=== PATIENT | female | born 1940 ===

== ENCOUNTER 2021-03-26 07:22 | Inpatient (IN) | payer BC, OTHER ==
[~2021-03-26] VITALS: Ht 157.5 cm; Wt 45.4 kg
[2021-03-26 09:00] LABS: Basophils # (auto) 0 10 ^3/uL (0-0.2); Basophils % (auto) 0.3 % (0.0-2.0); Eosinophils # (auto) 0 10 ^3/uL (0-0.8); Eosinophils % (auto) 0.7 % (0.0-7.0); Hematocrit 33.3 % (36.0-46.0); Hemoglobin 10.8 g/dL (12.2-16.2); Lymphocytes # (auto) 0.8 10 ^3/uL (0.4-5.4); Lymphocytes % (auto) 13.5 % (10.0-50.0); Mean Corpuscular Hemoglobin 31.9 pg (28.0-32.0); Mean Corpuscular Hgb Conc. 32.6 g/dL (32.0-36.0); Mean Corpuscular Volume 97.9 fL (80.0-100.0); Monocytes # (auto) 0.5 10 ^3/uL (0-1.3); Monocytes % (auto) 8.5 % (0.0-12.0); Neutrophils # (auto) 4.5 10 ^3/uL (1.6-8.6); White Blood Cell 5.9 10^3/uL (4.4-10.8)
[2021-03-26 09:06] LABS: Alanine Aminotransferase 23 U/L (13-56); Albumin 2.8 g/dL (3.4-5.0); Anion Gap 8 (5-15); Aspartate Aminotransferase 13 U/L (15-37); BUN/Creatinine Ratio 20.3; Blood Urea Nitrogen 13 mg/dL (7-18); Calcium 8.4 mg/dL (8.5-10.1); Carbon Dioxide 27 mmol/L (21-32); Chloride 106 mmol/L (98-107); GFR African American 115 mL/min; GFR Non-African American 95 mL/min; Glucose 84 mg/dL (74-106); Sodium 141 mmol/L (136-145)
[2021-03-26 09:07] LABS: INR 1.14 (0.9-1.15); Partial Thromboplastin Time 25.8 sec (23.6-33.0)
[2021-03-26 09:11] LABS: Alkaline Phosphatase 62 U/L (45-117); Bilirubin, Total 0.6 mg/dL (0.2-1.0); Total Protein 6.2 g/dL (6.4-8.2)
[2021-03-26] MEDS ORDERED: ONDANSETRON HCL 4 MG/2 ML VIAL IV ONE (10:45)
[2021-03-26] MEDS ORDERED: MORPHINE SULFATE 4 MG/ML SYR/VIAL IV ONE (10:45)
[2021-03-26] MEDS ORDERED: MORPHINE SULFATE INJECTION 2 MG/ML SYRG IV PRN ×2 (14:30→20:15)
[2021-03-26] MEDS ORDERED: NITROGLYCERIN 0.4 MG SL TAB SL PRN ×2 (14:30→20:15)
[2021-03-26] MEDS ORDERED: ALEN70TA74 PO (16:23)
[2021-03-26] MEDS ORDERED: AMLO-489 PO (16:23)
[2021-03-26] MEDS ORDERED: LANS30CA58 PO (16:23)
[2021-03-26] MEDS ORDERED: LEFL1TAB3 PO (16:23)
[2021-03-26] MEDS ORDERED: PRE5T PO (16:23)
[2021-03-26] MEDS ORDERED: LEVO50TA7 PO (16:23)
[2021-03-26] MEDS ORDERED: HYDR200T36 PO (16:23)
[2021-03-26 17:00] VITALS: BP 143/69
[2021-03-26] MEDS ORDERED: LORazepam 0.5 MG TAB PO PRN (20:15)
[2021-03-26] MEDS ORDERED: hydrALAZINE HCL 20 MG/ML VL IV PRN (20:15)
[2021-03-26] MEDS ORDERED: NIFEdipine ER 30 MG TAB PO ONE (20:15)
[2021-03-26] MEDS ORDERED: ceFAZolin 1GM/50ML 50 ML IV ONE (20:15)
[2021-03-26] MEDS ORDERED: DOCUSATE SOD 100 MG CAP PO PRN (20:15)
[2021-03-26] MEDS ORDERED: ALUM & MAG HYDROX-SIMETH LIQ(MAALOX) 30 ML PO PRN (20:15)
[2021-03-26] MEDS ORDERED: ONDANSETRON HCL 4 MG/2 ML VIAL IV PRN (20:15)
[2021-03-26] MEDS: SOD CHL 0.45% 1,000 ML IV SCH (21:23)
[2021-03-26] MEDS: ceFAZolin 1GM/50ML 50 ML IV SCH (21:25)
[2021-03-26] MEDS: FAMOTIDINE (10MG/ML) 2ML VL IV SCH (21:29)
[2021-03-26 22:00] VITALS: BP 137/69
[2021-03-26 22:24] LABS: Basophils # (auto) 0 10 ^3/uL (0-0.2); Basophils % (auto) 0.3 % (0.0-2.0); Eosinophils # (auto) 0.1 10 ^3/uL (0-0.8); Eosinophils % (auto) 1.6 % (0.0-7.0); Hematocrit 33.8 % (36.0-46.0); Hemoglobin 10.9 g/dL (12.2-16.2); Lymphocytes # (auto) 0.7 10 ^3/uL (0.4-5.4); Lymphocytes % (auto) 11.4 % (10.0-50.0); Mean Corpuscular Hgb Conc. 32.3 g/dL (32.0-36.0); Mean Corpuscular Volume 99.1 fL (80.0-100.0); Monocytes # (auto) 0.6 10 ^3/uL (0-1.3); Monocytes % (auto) 9.6 % (0.0-12.0); Neutrophils % (auto) 77.1 % (37.0-80.0); Red Blood Cells 3.41 10^6/uL (4.0-5.20); Red Cell Distribution Width 14.8 % (11.8-14.3); White Blood Cell 6.5 10^3/uL (4.4-10.8)
[2021-03-26 22:50] LABS: Cholesterol 148 mg/dL (< 200); HDL Cholesterol 61 mg/dL (40-59); LDL Cholesterol 75 mg/dL (< 100); Triglycerides 70 mg/dL (< 150)
[2021-03-27 05:00] VITALS: BP 154/85
[2021-03-27 06:20] LABS: Basophils # (auto) 0 10 ^3/uL (0-0.2); Basophils % (auto) 0.3 % (0.0-2.0); Eosinophils # (auto) 0 10 ^3/uL (0-0.8); Eosinophils % (auto) 0.4 % (0.0-7.0); Hematocrit 39.7 % (36.0-46.0); Hemoglobin 12.8 g/dL (12.2-16.2); Lymphocytes # (auto) 0.4 10 ^3/uL (0.4-5.4); Lymphocytes % (auto) 7.7 % (10.0-50.0); Mean Corpuscular Hgb Conc. 32.2 g/dL (32.0-36.0); Mean Corpuscular Volume 99.3 fL (80.0-100.0); Monocytes # (auto) 0.4 10 ^3/uL (0-1.3); Monocytes % (auto) 6.7 % (0.0-12.0); Neutrophils # (auto) 4.9 10 ^3/uL (1.6-8.6); Neutrophils % (auto) 84.9 % (37.0-80.0); Red Cell Distribution Width 15.6 % (11.8-14.3); White Blood Cell 5.8 10^3/uL (4.4-10.8)
[2021-03-27 06:30] LABS: INR 1.12 (0.9-1.15); Partial Thromboplastin Time 29.3 sec (23.6-33.0)
[2021-03-27 06:36] LABS: Chloride 102 mmol/L (98-107); Potassium 4.1 mmol/L (3.5-5.1); Sodium 136 mmol/L (136-145)
[2021-03-27 06:44] LABS: Alanine Aminotransferase 26 U/L (13-56); Albumin 3.1 g/dL (3.4-5.0); Alkaline Phosphatase 71 U/L (45-117); Anion Gap 9 (5-15); Aspartate Aminotransferase 16 U/L (15-37); BUN/Creatinine Ratio 35.6; Bilirubin, Total 0.7 mg/dL (0.2-1.0); Blood Urea Nitrogen 16 mg/dL (7-18); Calcium 8.6 mg/dL (8.5-10.1); Carbon Dioxide 25 mmol/L (21-32); GFR African American 172 mL/min; GFR Non-African American 142 mL/min; Glucose 55 mg/dL (74-106); Total Protein 6.7 g/dL (6.4-8.2); Uric Acid 3.4 mg/dL (2.6-6.0)
[2021-03-27] MEDS: ceFAZolin 1GM/50ML 50 ML IV SCH ×3 (07:01→21:03)
[2021-03-27] MEDS: LEVOTHYROXINE SODIUM 50 MCG TAB PO SCH (07:04)
[2021-03-27 09:06] VITALS: BP 135/67
[2021-03-27] MEDS: FAMOTIDINE (10MG/ML) 2ML VL IV SCH (09:50)
[2021-03-27] MEDS: NIFEdipine ER 30 MG TAB PO SCH (09:50)
[2021-03-27] MEDS: MORPHINE SULFATE INJECTION 2 MG/ML SYRG IV PRN (09:53)
[2021-03-27] MEDS ORDERED: ENOXAPARIN SOD 30 MG/0.3 ML SYRINGE SC SCH (10:00)
[2021-03-27] MEDS ORDERED: predniSONE 5 MG TAB PO ONE (11:00)
[2021-03-27] MEDS: SOD CHL 0.45% 1,000 ML IV SCH (12:55)
[2021-03-27 13:04] VITALS: BP 168/69
[2021-03-27] MEDS: HYDROcodone-ACET 5/325MG TAB PO PRN (16:34)
[2021-03-27 17:00] VITALS: BP 134/54
[2021-03-27 20:43] LABS: Amphetamine Screen, Urine NEGATIVE (NEGATIVE); Barbiturate Scree,Urine NEGATIVE (NEGATIVE); Benzodiazephine Screen, Urine NEGATIVE (NEGATIVE); Cannabinoid Screen, Urine NEGATIVE (NEGATIVE); Opiate Scree,Urine NEGATIVE (NEGATIVE); Phencyclidine Screen, Urine NEGATIVE (NEGATIVE)
[2021-03-27 20:45] LABS: Alcohol, Urine < 3.0 mg/dL (0-10); Cocaine Screen, Urine NEGATIVE (NEGATIVE)
[2021-03-27 21:26] LABS: Urine Bacteria FEW /hpf (None Seen); Urine Mucus FEW (None Seen); Urine WBC 5 /hpf (0 - 5)
[2021-03-27 21:34] LABS: Urine Blood Normal /uL (Negative); Urine Specific Gravity 1.012 (1.001-1.035)
[2021-03-27 22:00] VITALS: BP 114/56
[2021-03-28] MEDS: MORPHINE SULFATE INJECTION 2 MG/ML SYRG IV PRN (00:12)
[2021-03-28] MEDS: ceFAZolin 1GM/50ML 50 ML IV SCH ×3 (04:39→21:54)
[2021-03-28 05:00] VITALS: BP 146/68
[2021-03-28] MEDS: SOD CHL 0.45% 1,000 ML IV SCH (05:35)
[2021-03-28] MEDS: LEVOTHYROXINE SODIUM 50 MCG TAB PO SCH (06:03)
[2021-03-28] MEDS ORDERED: EPINEPHrine HCL 1 MG/1 ML AMP ONE (06:27)
[2021-03-28] MEDS ORDERED: TRANEXAMIC ACID 20 ML ONE (06:27)
[2021-03-28] MEDS ORDERED: TETRACAINE 1% INJ 2 ML VIAL IJ ONE (06:27)
[2021-03-28] MEDS: VANCOMYCIN HCL 1000 MG VL ONE ×2 (06:31→08:50)
[2021-03-28] MEDS ORDERED: ceFAZolin 1GM/50ML 100 ML IV ONE (06:50)
[2021-03-28] MEDS ORDERED: BUPIVACAINE 0.5% P/F INJ 10 ML VIAL ONE (07:06)
[2021-03-28] MEDS ORDERED: fentaNYL CITRATE 100 MCG/2 ML VL ONE (07:11)
[2021-03-28] MEDS ORDERED: MIDAZOLAM HCL 2MG/2ML 2ml VIAL (1mg/ml) ONE ×2 (07:12→08:05)
[2021-03-28] MEDS ORDERED: PROPOFOL 10 MG/ML 20 ML IV ONE (07:43)
[2021-03-28] MEDS ORDERED: DexAMETHasone SOD PHOS 10MG/1ML VIAL INJ ONE (07:43)
[2021-03-28] MEDS ORDERED: BUPIVACAINE 0.25% INJ 50ML VIAL ONE (07:57)
[2021-03-28] MEDS ORDERED: ePHEDrine SULFATE 50 MG/ML AMP IV PRN (08:00)
[2021-03-28] MEDS ORDERED: HYDROmorphone HCL 2 MG/ML VL IV PRN (08:00)
[2021-03-28] MEDS ORDERED: MORPHINE SULFATE 4 MG/ML SYR/VIAL IV PRN (08:00)
[2021-03-28] MEDS ORDERED: MIDAZOLAM HCL 2MG/2ML 2ml VIAL (1mg/ml) IV PRN (08:00)
[2021-03-28] MEDS ORDERED: ONDANSETRON HCL 4 MG/2 ML VIAL IV PRN (08:00)
[2021-03-28] MEDS ORDERED: LABETALOL HCL 5 MG/ML 4ML SYRINGE IV PRN (08:00)
[2021-03-28] MEDS ORDERED: LACTATED RINGER'S 1,000 ML IV SCH (09:15)
[2021-03-28 10:27] VITALS: BP 145/70
[2021-03-28] MEDS: FAMOTIDINE (10MG/ML) 2ML VL IV SCH (11:27)
[2021-03-28] MEDS: predniSONE 5 MG TAB PO SCH (11:28)
[2021-03-28] MEDS: NIFEdipine ER 30 MG TAB PO SCH (11:29)
[2021-03-28 13:00] VITALS: BP 146/71
[2021-03-28] MEDS: HYDROCORTISONE SOD SUCC 100 MG/2ML INJ VIAL IV SCH ×2 (14:00→21:54)
[2021-03-28 17:00] VITALS: BP 129/72
[2021-03-28 22:00] VITALS: BP 130/64
[2021-03-29 05:00] VITALS: BP 122/61
[2021-03-29 06:07] LABS: Basophils # (auto) 0 10 ^3/uL (0-0.2); Basophils % (auto) 0.1 % (0.0-2.0); Eosinophils # (auto) 0 10 ^3/uL (0-0.8); Hematocrit 32.3 % (36.0-46.0); Hemoglobin 10.7 g/dL (12.2-16.2); Lymphocytes # (auto) 0.3 10 ^3/uL (0.4-5.4); Lymphocytes % (auto) 2.8 % (10.0-50.0); Mean Corpuscular Hemoglobin 32.5 pg (28.0-32.0); Mean Corpuscular Hgb Conc. 33.1 g/dL (32.0-36.0); Mean Corpuscular Volume 98.3 fL (80.0-100.0); Monocytes # (auto) 0.5 10 ^3/uL (0-1.3); Monocytes % (auto) 5.3 % (0.0-12.0); Neutrophils # (auto) 9.1 10 ^3/uL (1.6-8.6); Neutrophils % (auto) 91.8 % (37.0-80.0); Red Blood Cells 3.28 10^6/uL (4.0-5.20); Red Cell Distribution Width 14.9 % (11.8-14.3); White Blood Cell 9.9 10^3/uL (4.4-10.8)
[2021-03-29] MEDS: LEVOTHYROXINE SODIUM 50 MCG TAB PO SCH (06:13)
[2021-03-29 06:28] LABS: Potassium 3.8 mmol/L (3.5-5.1)
[2021-03-29 06:30] LABS: BUN/Creatinine Ratio 26.9
[2021-03-29 09:00] VITALS: BP 138/58
[2021-03-29] MEDS: predniSONE 5 MG TAB PO SCH (09:32)
[2021-03-29] MEDS: FAMOTIDINE (10MG/ML) 2ML VL IV SCH (09:32)
[2021-03-29] MEDS: NIFEdipine ER 30 MG TAB PO SCH (09:33)
[2021-03-29 13:00] VITALS: BP 153/70
[2021-03-29] MEDS: HYDROcodone-ACET 5/325MG TAB PO PRN (16:11)
[2021-03-29 17:00] VITALS: BP 127/67
[2021-03-29 22:00] VITALS: BP 105/38
[2021-03-30 05:45] LABS: Basophils # (auto) 0 10 ^3/uL (0-0.2); Basophils % (auto) 0.2 % (0.0-2.0); Eosinophils # (auto) 0.1 10 ^3/uL (0-0.8); Eosinophils % (auto) 1.2 % (0.0-7.0); Hematocrit 32.5 % (36.0-46.0); Hemoglobin 10.8 g/dL (12.2-16.2); Lymphocytes # (auto) 0.8 10 ^3/uL (0.4-5.4); Lymphocytes % (auto) 11.4 % (10.0-50.0); Mean Corpuscular Hemoglobin 32.6 pg (28.0-32.0); Mean Corpuscular Hgb Conc. 33.3 g/dL (32.0-36.0); Mean Corpuscular Volume 97.7 fL (80.0-100.0); Neutrophils % (auto) 73.2 % (37.0-80.0); Nucleated Red Blood Cells % 0.1 %; Red Blood Cells 3.33 10^6/uL (4.0-5.20); Red Cell Distribution Width 14.8 % (11.8-14.3); White Blood Cell 6.8 10^3/uL (4.4-10.8)
[2021-03-30 06:00] VITALS: BP 142/63
[2021-03-30 06:00] LABS: BUN/Creatinine Ratio 29.6; Calcium 8.4 mg/dL (8.5-10.1); Magnesium 2.5 mg/dL (1.6-2.6); Potassium 3.8 mmol/L (3.5-5.1)
[2021-03-30] MEDS: LEVOTHYROXINE SODIUM 50 MCG TAB PO SCH (06:42)
[2021-03-30 09:00] VITALS: BP 138/93
[2021-03-30] MEDS: FAMOTIDINE (10MG/ML) 2ML VL IV SCH (09:18)
[2021-03-30] MEDS: NIFEdipine ER 30 MG TAB PO SCH (09:18)
[2021-03-30] MEDS: predniSONE 5 MG TAB PO SCH (09:21)
[2021-03-30] MEDS: HYDROcodone-ACET 5/325MG TAB PO PRN (12:36)
[2021-03-30 13:00] VITALS: BP 136/78
[2021-03-30 22:00] VITALS: BP 105/65
[2021-03-31 04:47] VITALS: BP 153/73
[2021-03-31] MEDS: LEVOTHYROXINE SODIUM 50 MCG TAB PO SCH (06:02)
[2021-03-31 09:00] VITALS: BP 142/75
[2021-03-31] MEDS: predniSONE 5 MG TAB PO SCH (10:34)
[2021-03-31] MEDS: NIFEdipine ER 30 MG TAB PO SCH (10:34)
[2021-03-31] MEDS: FAMOTIDINE (10MG/ML) 2ML VL IV SCH (10:34)
[2021-03-31] MEDS: HYDROcodone-ACET 5/325MG TAB PO PRN (10:35)
[2021-03-31 10:41] VITALS: BP 142/75
[2021-04-19] MEDS ORDERED: ENOXAPARIN SOD 30 MG/0.3 ML SYRINGE SC SCH (10:00)
== END 2021-03-31 13:15 | disposition home health service (06) | DRG 522 ==
LOC: EDBD 07:22 → ER 07:22 → OVERFLOW 14:23 → WEST WING 15:30 → TELE-WESTW 03-28 09:32
PROVIDERS: ADMIT Hospitalist; ATTEND Internal Medicine
PROC: 0SRR019 Replacement of Right Hip Joint, Femoral Surface with Metal Synthetic Substitute, Cemented, Open Approach (ICD-10-PCS; principal; 2021-03-28 07:14)
DX: S72.001A Fracture of unspecified part of neck of right femur, initial encounter for closed fracture (principal); E44.1 Mild protein-calorie malnutrition; Z68.1 Body mass index [BMI] 19.9 or less, adult; J84.9 Interstitial pulmonary disease, unspecified; D62 Acute posthemorrhagic anemia; I10 Essential (primary) hypertension; J44.9 Chronic obstructive pulmonary disease, unspecified; E03.9 Hypothyroidism, unspecified; K29.70 Gastritis, unspecified, without bleeding; Z20.822 Contact with and (suspected) exposure to COVID-19; K21.9 Gastro-esophageal reflux disease without esophagitis; E78.5 Hyperlipidemia, unspecified; H91.90 Unspecified hearing loss, unspecified ear; M06.9 Rheumatoid arthritis, unspecified; W18.39XA Other fall on same level, initial encounter; M19.90 Unspecified osteoarthritis, unspecified site; M81.0 Age-related osteoporosis without current pathological fracture; Z85.3 Personal history of malignant neoplasm of breast; Z99.81 Dependence on supplemental oxygen; Y93.89 Activity, other specified; Y99.8 Other external cause status; Y92.098 Other place in other non-institutional residence as the place of occurrence of the external cause
CPT/HCPCS: 36415; 51702; 71045; 72170; 73502; 73700; 80048; 80053; 80061; 80307; 81001; 82306; 83036; 83735; 83880; 84443; 84484; 84550; 85025; 85610; 85730; 86850; 86900; 86901; 87040; 87086; 87426; 93005; 93306; 96374; 96375; 97116; 97163; 97530; A4565; G0378; J0171; J0690; J1100; J2250; J2405; J2704; J3490